=== PATIENT | male | born 1940 | race Caucasian/White ===

== ENCOUNTER 2017-10-24 12:20 | Observation (INO) | payer MEDICARE, BC ==
[2017-10-24] MEDS ORDERED: DILTIAZEM 125 MG in SODIUM CHLORIDE 0.9% 100 ML IV ONE (12:46)
--- NOTE | 2017-10-24 12:46 | ED ---
General Adult HPI - General Chief complaint: Arrhythmia/Palpitations Stated complaint: Arrhythmia Time Seen by Provider: 10/24/17 12:37 Source: patient, family, RN notes reviewed Mode of arrival: wheelchair Limitations: no limitations - History of Present Illness Initial comments: Patient is a pleasant 77-year-old male presenting to the emergency Department with reported rhythm problems. Patient states he was at the eye doctor in [place] scheduled to have a procedure done for glaucoma. Patient states while there they noticed his heart skipping a beat and beating fast. Patient has no symptoms. No palpitations. No chest pain or dyspnea. No history of similar symptoms previously. - Related Data Home Medications Medication Instructions Recorded Confirmed Atropine Ophth Soln 1% 5Ml [Isopto 1 drops LEFT EYE BID 10/24/17 10/24/17 Atropine 1% 5Ml] Brinzolamide/Brimonidine Tart 1 drop LEFT EYE BID 10/24/17 10/24/17 [Simbrinza 1%-0.2% Eye Drops] HYDROcodone/APAP 5-325MG [[place] 1 tab PO Q4-6H PRN 10/24/17 10/24/17 5-325] Latanoprost [Xalatan 0.005%] 1 drop LEFT EYE HS 10/24/17 10/24/17 Timolol 0.5% Ophth Soln [Timoptic 1 drop LEFT EYE BID 10/24/17 10/24/17 0.5% Ophth Soln] acetaZOLAMIDE [Diamox] 250 mg PO Q4H 10/24/17 10/24/17 prednisoLONE ACETATE [Pred Forte 1 drop LEFT EYE QID 10/24/17 10/24/17 1%] Allergies Allergy/AdvReac Type Severity Reaction Status Date / Time No Known Allergies Allergy Verified 10/24/17 13:00 Review of Systems ROS Statement: Those systems with pertinent positive or pertinent negative responses have been documented in the HPI. ROS Other: All systems not noted in ROS Statement are negative. Constitutional: Denies: fever Eyes: Denies: eye pain ENT: Denies: ear pain Respiratory: Denies: cough Cardiovascular: Denies: chest pain, palpitations Endocrine: Denies: fatigue Gastrointestinal: Denies: abdominal pain Genitourinary: Denies: dysuria Musculoskeletal: Denies: back pain Skin: Denies: rash Neurological: Denies: weakness Past Medical History Past Medical History: Eye Disorder History of Any Multi-Drug Resistant Organisms: None Reported Past Surgical History: Tonsillectomy Past Psychological History: No Psychological Hx Reported Smoking Status: Former smoker Past Alcohol Use History: None Reported Past Drug Use History: None Reported General Exam Limitations: no limitations General appearance: alert, in no apparent distress Head exam: Present: atraumatic Eye exam: Present: conjunctival injection, other (Left pupil sluggish. Patient states he has had previous cataract surgery.) ENT exam: Present: normal oropharynx Neck exam: Present: normal inspection Respiratory exam: Present: normal lung sounds bilaterally Cardiovascular Exam: Present: regular rate, irregular rhythm GI/Abdominal exam: Present: soft. 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 10/24/17 14:14 Repeat EKG shows normal sinus rhythm 71. CT 156. QRS 68. QT 360. QTC 391. Normal axis. Septal Q waves. No acute ST change. EKG Findings - EKG Comments: EKG Findings:: A. fib with a rate of 132. QRS 72. QT 302. QTC 447. Normal axis. Septal Q waves. No acute ST change. Medical Decision Making - Medical Decision Making Patient reevaluated and resting comfortably in bed. Patient has converted to normal sinus rhythm. Case was discussed with Dr. Treviño, who will admit for hospital call with cardiology consult. - Lab Data Result diagrams: 10/24/17 12:47 10/24/17 12:47 Lab Results 10/24/17 10/24/17 10/24/17 Range/Units 12:47 12:47 12:47 WBC 6.7 (3.8-10.6) k/uL RBC 5.61 (4.30-5.90) m/uL Hgb 16.0 (13.0-17.5) gm/dL Hct 49.6 (39.0-53.0) % MCV 88.4 (80.0-100.0) fL MCH 28.5 (25.0-35.0) pg MCHC 32.3 (31.0-37.0) g/dL RDW 15.5 (11.5-15.5) % Plt Count 299 (150-450) k/uL Neutrophils % 69 % Lymphocytes % 21 % Monocytes % 6 % Eosinophils % 1 % Basophils % 1 % Neutrophils # 4.6 (1.3-7.7) k/uL Lymphocytes # 1.4 (1.0-4.8) k/uL Monocytes # 0.4 (0-1.0) k/uL Eosinophils # 0.1 (0-0.7) k/uL Basophils # 0.1 (0-0.2) k/uL PT (9.0-12.0) sec INR (<1.2) APTT (22.0-30.0) sec Sodium 142 (137-145) mmol/L Potassium 4.3 (3.5-5.1) mmol/L Chloride 112 H (98-107) mmol/L Carbon Dioxide 21 L (22-30) mmol/L Anion Gap 9 mmol/L BUN 15 (9-20) mg/dL Creatinine 0.90 (0.66-1.25) mg/dL Est GFR (MDRD) Af Amer >60 (>60 ml/min/1.73 sqM) Est GFR (MDRD) Non-Af >60 (>60 ml/min/1.73 sqM) Glucose 138 H (74-99) mg/dL Calcium 9.5 (8.4-10.2) mg/dL Magnesium 2.2 (1.6-2.3) mg/dL Total Bilirubin 0.5 (0.2-1.3) mg/dL AST 21 (17-59) U/L ALT 32 (21-72) U/L Alkaline Phosphatase 91 (38-126) U/L Total Creatine Kinase 82 (55-170) U/L CK-MB (CK-2) 1.3 (0.0-2.4) ng/mL CK-MB (CK-2) Rel Index 1.6 Troponin I <0.012 (0.000-0.034) ng/mL Total Protein 6.9 (6.3-8.2) g/dL Albumin 4.0 (3.5-5.0) g/dL TSH 2.590 (0.465-4.680) mIU/L Free T4 1.27 (0.78-2.19) ng/dL Free T3 pg/mL 3.6 (2.8-5.3) pg/ml 10/24/17 Range/Units 12:47 WBC (3.8-10.6) k/uL RBC (4.30-5.90) m/uL Hgb (13.0-17.5) gm/dL Hct (39.0-53.0) % MCV (80.0-100.0) fL MCH (25.0-35.0) pg MCHC (31.0-37.0) g/dL RDW (11.5-15.5) % Plt Count (150-450) k/uL Neutrophils % % Lymphocytes % % Monocytes % % Eosinophils % % Basophils % % Neutrophils # (1.3-7.7) k/uL Lymphocytes # (1.0-4.8) k/uL Monocytes # (0-1.0) k/uL Eosinophils # (0-0.7) k/uL Basophils # (0-0.2) k/uL PT 10.3 (9.0-12.0) sec INR 1.1 (<1.2) APTT 25.1 (22.0-30.0) sec Sodium (137-145) mmol/L Potassium (3.5-5.1) mmol/L Chloride (98-107) mmol/L Carbon Dioxide (22-30) mmol/L Anion Gap mmol/L BUN (9-20) mg/dL Creatinine (0.66-1.25) mg/dL Est GFR (MDRD) Af Amer (>60 ml/min/1.73 sqM) Est GFR (MDRD) Non-Af (>60 ml/min/1.73 sqM) Glucose (74-99) mg/dL Calcium (8.4-10.2) mg/dL Magnesium (1.6-2.3) mg/dL Total Bilirubin (0.2-1.3) mg/dL AST (17-59) U/L ALT (21-72) U/L Alkaline Phosphatase (38-126) U/L Total Creatine Kinase (55-170) U/L CK-MB (CK-2) (0.0-2.4) ng/mL CK-MB (CK-2) Rel Index Troponin I (0.000-0.034) ng/mL Total Protein (6.3-8.2) g/dL Albumin (3.5-5.0) g/dL TSH (0.465-4.680) mIU/L Free T4 (0.78-2.19) ng/dL Free T3 pg/mL (2.8-5.3) pg/ml - Radiology Data Radiology results: image reviewed (Chest x-ray shows no acute process.) Disposition Clinical Impression: Atrial fibrillation Disposition: ADMITTED IP TO THIS HOSP Referrals: None,Stated [Primary Care Provider] - 1-2 days
[2017-10-24 13:04] LABS: Basophils # (A) 0.1 k/uL (0-0.2); Basophils % (A) 1 %; Eosinophils # (A) 0.1 k/uL (0-0.7); Eosinophils % (A) 1 %; HCT 49.6 % (39.0-53.0); Lymphocytes # (A) 1.4 k/uL (1.0-4.8); Lymphocytes % (A) 21 %; MCH 28.5 pg (25.0-35.0); MCHC 32.3 g/dL (31.0-37.0); MCV 88.4 fL (80.0-100.0); Mean Platelet Volume 7.4; Monocytes # (A) 0.4 k/uL (0-1.0); Monocytes % (A) 6 %; Neutrophils # (A) 4.6 k/uL (1.3-7.7); Neutrophils % (A) 69 %; Platelet Count 299 k/uL (150-450); RBC 5.61 m/uL (4.30-5.90); RDW 15.5 % (11.5-15.5); WBC 6.7 k/uL (3.8-10.6)
--- NOTE | 2017-10-24 13:17 | XR ---
EXAMINATION TYPE: XR chest 1V portable DATE OF EXAM: 10/24/2017 COMPARISON: NONE HISTORY: Dysrhythmia TECHNIQUE: Single frontal view of the chest is obtained. FINDINGS: Patient is rotated. Prominent lung volumes may be indicative of underlying COPD. There is no evident airspace disease, pneumothorax, or pleural effusion. Heart is small. Pulmonary vascularity and brody within normal limits. Interstitium mildly prominent. There are overlying cardiac leads. IMPRESSION: No acute cardiopulmonary disease. Rotated exam. Follow-up as indicated. Possible underly ing interstitial lung disease.
[2017-10-24 13:18] LABS: INR 1.1 (<1.2); Partial Thromboplastin Time 25.1 sec (22.0-30.0); Prothrombin Time 10.3 sec (9.0-12.0)
[2017-10-24 13:25] LABS: ALT 32 U/L (21-72); AST 21 U/L (17-59); Alkaline Phosphatase 91 U/L (38-126); Anion Gap 9 mmol/L; Blood Urea Nitrogen 15 mg/dL (9-20); Calcium 9.5 mg/dL (8.4-10.2); Carbon Dioxide 21 mmol/L (22-30); Chloride 112 mmol/L (98-107); Glucose 138 mg/dL (74-99); Magnesium 2.2 mg/dL (1.6-2.3); Sodium 142 mmol/L (137-145); Total Bilirubin 0.5 mg/dL (0.2-1.3); Total Protein 6.9 g/dL (6.3-8.2)
[2017-10-24 13:32] LABS: Creatine Kinase 82 U/L (55-170)
[2017-10-24 13:42] LABS: T4, Free (Free Thyroxine) 1.27 ng/dL (0.78-2.19)
[2017-10-24 13:45] LABS: Creatine Kinase MB 1.3 ng/mL (0.0-2.4); Troponin I <0.012 ng/mL (0.000-0.034)
[2017-10-24 13:58] LABS: Potassium 4.3 mmol/L (3.5-5.1)
[2017-10-24] MEDS ORDERED: NALOXONE 0.4 MG/ML 1 ML VIAL IV PRN (16:22)
[2017-10-24] MEDS ORDERED: SODIUM CHLORIDE 0.9% 1,000 ML IV SCH (16:30)
[2017-10-24] MEDS ORDERED: ALPRAZolam 0.25 MG TAB PO PRN (22:20)
[2017-10-24] MEDS ORDERED: TEMAZEPAM 15 MG CAP PO PRN (22:20)
[2017-10-24] MEDS ORDERED: HYDROcodone/APAP 5-325MG 1 EACH TAB PO PRN (22:20)
[2017-10-24] MEDS ORDERED: LATANOPROST 0.005% OPHTH DROPS 2.5 ML BTL LEFT EYE SCH (22:30)
--- NOTE | 2017-10-24 23:14 | HP ---
HISTORY AND PHYSICAL DATE OF SERVICE: 10/24/2017 CHIEF COMPLAINT: Palpitations. HISTORY OF PRESENT ILLNESS: This 77-year-old gentleman with a past medical history of eye disorder, glaucoma, left eye, cataracts, being followed by no primary physician in the outpatient setting, apparently was planning to have surgery for glaucoma in [facility]. The patient was noted to have atrial fibrillation with fast ventricular rate by the anesthesiologist. The patient was directed to the emergency room. The patient was found to have atrial fibrillation with a fast ventricular rate, but apparently the rhythm converted to normal sinus rhythm without any Cardizem. Patient is being closely monitored. There is no history of any chest pain. No history of palpitations. No history of headache, loss of consciousness, seizures. PAST MEDICAL HISTORY: 1. History of cataract. 2. Left eye glaucoma. 3. History of eye disorder. HOME MEDICATIONS: 1. Pred Forte 1% left eye q.i.d. 2. Diamox 250 mg q.4. 3. Timoptic 0.5 mg 1 drop left eye b.i.d. 4. Xalatan 0.05 one drop left eye at bedtime. 5. [place] 5 mg q.4 to 6 p.r.n. 6. Simbrinza 1 drop left eye b.i.d. 7. Isopto Atropine 1 drop left eye b.i.d. ALLERGIES: NONE. FAMILY HISTORY: History of stomach cancer. SOCIAL HISTORY: History of smoking. No history alcohol intake. REVIEW OF SYSTEMS: ENT: As mentioned earlier. CARDIOVASCULAR SYSTEM: As mentioned earlier. RESPIRATORY SYSTEM: No cough, hemoptysis. GI: No nausea, vomiting. : No dysuria or retention. NERVOUS SYSTEM: No numbness, weakness. ALLERGY/IMMUNOLOGY: No asthma, hayfever. MUSCULOSKELETAL: As mentioned earlier. HEMATOLOGY/ONCOLOGY: No history of anemia. ENDOCRINE: No history of diabetes, hypothyroidism. CONSTITUTIONAL: As mentioned earlier. DERMATOLOGY: Negative. RHEUMATOLOGY: Negative. PSYCHIATRY: As mentioned earlier. PHYSICAL EXAMINATION: Alert and oriented x3. Pulse is 56, blood pressure 147/87, respiration 16, temperature 97 degrees, pulse ox 96% on 2 L. HEENT: Conjunctivae normal. Oral mucosa moist. NECK: No jugular venous distention. No carotid bruit. No lymph node enlargement. CARDIOVASCULAR SYSTEM: S1, S2 irregular. No murmur. No thrills. RESPIRATORY SYSTEM: Breath sounds diminished at the bases. No rhonchi. No crackles. ABDOMEN: Soft, non-tender. No mass palpable. No hepatosplenomegaly. LEGS: No edema. No swelling. NERVOUS SYSTEM: Higher functions as mentioned earlier. Moves all 4 limbs. No focal motor or sensory deficit. LYMPHATICS: No lymph node palpable in neck, axillae or groin. SKIN: No ulcer, rash, bleeding. LABS: Labs at this time show CBC within normal limits. Otherwise glucose 138. TSH is normal. Free T3 and free T4 were also normal. ASSESSMENT: 1. Paroxysmal atrial fibrillation. 2. Glaucoma. 3. Increased random blood sugar. 4. History of cataracts. 5. History of nicotine dependence. RECOMMENDATION AND DISCUSSION: In this 77-year-old gentleman who presented with multiple complex medical issues, we will we will monitor the patient closely, continue the current medications, continue with symptomatic treatment. Will obtain 2D echo with Doppler. Cardiology consultation. Otherwise monitor rate closely. Cardizem has not been initiated. Guarded prognosis because of the multiple complex medical issues. Discussed with the patient, who understands. Further recommendations to follow. MMODL / IJN: [id number] /
[2017-10-24] MEDS: DORZOLAMIDE HCL 2% DROPS 10 ML BTL LEFT EYE SCH (23:21)
[2017-10-24] MEDS: NICOTINE 14MG/24HR PATCH TRANSDERM SCH (23:21)
[2017-10-24] MEDS: TIMOLOL 0.5% OPHTH DROPS 5 ML BTL LEFT EYE SCH (23:21)
[2017-10-24] MEDS: prednisoLONE ACETATE 1% OPHTH DROPS 5 ML BTL LEFT EYE SCH (23:21)
[2017-10-24] MEDS: ATROPINE OPHTH SOLN 1% 5ML BTL LEFT EYE SCH (23:21)
[2017-10-24] MEDS: acetaZOLAMIDE 250 MG TAB PO SCH (23:21)
[2017-10-25] MEDS: acetaZOLAMIDE 250 MG TAB PO SCH ×3 (03:38→12:51)
[2017-10-25 06:25] LABS: Basophils # (A) 0.1 k/uL (0-0.2); Basophils % (A) 2 %; Eosinophils # (A) 0.1 k/uL (0-0.7); Eosinophils % (A) 2 %; HCT 43.5 % (39.0-53.0); Lymphocytes # (A) 1.3 k/uL (1.0-4.8); Lymphocytes % (A) 26 %; MCH 29.3 pg (25.0-35.0); MCHC 32.3 g/dL (31.0-37.0); MCV 90.7 fL (80.0-100.0); Monocytes # (A) 0.5 k/uL (0-1.0); Monocytes % (A) 10 %; Neutrophils # (A) 2.9 k/uL (1.3-7.7); Neutrophils % (A) 57 %; Platelet Count 249 k/uL (150-450); RBC 4.79 m/uL (4.30-5.90); RDW 14.3 % (11.5-15.5); WBC 5.1 k/uL (3.8-10.6)
[2017-10-25 06:32] LABS: Anion Gap 8 mmol/L; Blood Urea Nitrogen 17 mg/dL (9-20); Calcium 8.8 mg/dL (8.4-10.2); Carbon Dioxide 24 mmol/L (22-30); Chloride 109 mmol/L (98-107); Glucose 88 mg/dL (74-99); Sodium 141 mmol/L (137-145)
[2017-10-25] MEDS ORDERED: PANTOPRAZOLE 40 MG TABLET PO SCH (07:30)
[2017-10-25 08:43] VITALS: RESP 18
[2017-10-25] MEDS ORDERED: BRIMONIDINE TARTRATE 0.2% DROPS 5 ML BTL LEFT EYE SCH (09:00)
[2017-10-25] MEDS ORDERED: HEPARIN SODIUM,PORCINE 5,000 UNIT/ML 1 ML VIAL SQ SCH (09:00)
[2017-10-25] MEDS: ATROPINE OPHTH SOLN 1% 5ML BTL LEFT EYE SCH (09:20)
[2017-10-25] MEDS: TIMOLOL 0.5% OPHTH DROPS 5 ML BTL LEFT EYE SCH (09:21)
[2017-10-25] MEDS: DORZOLAMIDE HCL 2% DROPS 10 ML BTL LEFT EYE SCH (09:21)
[2017-10-25] MEDS: NICOTINE 14MG/24HR PATCH TRANSDERM SCH (09:21)
[2017-10-25] MEDS: prednisoLONE ACETATE 1% OPHTH DROPS 5 ML BTL LEFT EYE SCH ×2 (09:21→14:23)
--- NOTE | 2017-10-25 11:21 | ECHOF ---
Referral Reason:afib MEASUREMENTS -------- HEIGHT: 175.3 cm WEIGHT: 70.3 kg BP: 147/87 RVIDd: 3.2 cm (< 3.3) IVSd: 0.8 cm (0.6 - 1.1) LVIDd: 3.8 cm (3.9 - 5.3) LVPWd: 1.0 cm (0.6 - 1.1) IVSs: 1.4 cm LVIDs: 2.2 cm LVPWs: 1.4 cm LA Diam: 2.8 cm (2.7 - 3.8) Ao Diam: 3.6 cm (2.0 - 3.7) AV Cusp: 2.0 cm (1.5 - 2.6) MV EXCURSION: 19.848 mm (> 18.000) MV EF SLOPE: 81 mm/s (70 - 150) EPSS: 0.3 cm MV E Wilman: 0.91 m/s MV DecT: 285 ms MV A Wilman: 0.67 m/s MV E/A Ratio: 1.36 RAP: 5.00 mmHg RVSP: 25.25 mmHg FINDINGS -------- Resting bradycardia (HR<60bpm). This was a technically good study. The left ventricular size is normal. Left ventricular wall thickness is normal. Overall left vent ricular systolic function is normal with, an EF between 55 - 60 %. The right ventricle is normal in size and function. The left atrium is normal in size. The right atrium is normal in size. There is mild aortic valve sclerosis. Mild mitral annular calcification present. Mild tricuspid regurgitation present. Right ventricular systolic pressure is normal at < 35 mmHg. There is no pulmonic regurgitation present. The aortic root size is normal. Normal inferior vena cava with normal inspiratory collapse consistent with estimated right atrial pre ssure of 5 mmHg. There is no pericardial effusion. CONCLUSIONS -------- 1. Resting bradycardia (HR<60bpm). 2. This was a technically good study. 3. The left ventricular size is normal. 4. Left ventricular wall thickness is normal. 5. Overall left ventricular systolic function is normal with, an EF between 55 - 60 %. 6. The right ventricle is normal in size and function. 7. The left atrium is normal in size. 8. The right atrium is normal in size. 9. There is mild aortic valve sclerosis. 10. Mild mitral annular calcification present. 11. Mild tricuspid regurgitation present. 12. Right ventricular systolic pressure is normal at < 35 mmHg. 13. There is no pulmonic regurgitation present. 14. The aortic root size is normal. 15. Normal inferior vena cava with normal inspiratory collapse consistent with estimated right atrial pressure of 5 mmHg. 16. There is no pericardial effusion. DATA GOVERNANCE CONSULTANT: Swathi Munson RDCS
[2017-10-25 11:38] VITALS: BMI 19.2
[2017-10-25 11:48] VITALS: BP 126/73; PULSE 55; TEMP 96.9
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
--- NOTE | 2017-10-26 11:31 | DS ---
DISCHARGE SUMMARY FINAL DIAGNOSES: 1. Paroxysmal atrial fibrillation. 2. Glaucoma. 3. Increase random blood sugar. 4. History of cataracts. 5. History of nicotine dependence. DISCHARGE DISPOSITION: The patient will be discharged in stable condition with guarded prognosis. HISTORY OF PRESENT ILLNESS: This 77-year-old gentleman with a past medical history of multiple medical problems was admitted with paroxysmal atrial fibrillation, referred from the surgeon's place where the patient is slated to have surgery for glaucoma. The patient was monitored closely. Eliquis was initiated by Cardiology. Patient improved significantly. On exam, vitals are stable. CARDIOVASCULAR: S1, S2 normal, regular. ABDOMEN: Soft, nontender. NERVOUS SYSTEM: No focal deficits. The patient will be discharged in stable condition with guarded prognosis with the following advice and medications: Diet is cardiac diet. Activity limited until followup. Follow up with Dr. Mays in 2-3 days for continued followup. Medications are: 1. Diamox 250 mg q.4h. 2. Eliquis 2.5 mg p.o. daily. 3. Isopto Atropine ophthalmic drops 1 drop left eye. 4. Brinzolamide and brimonidine 1 drop left eye. 5. [place] 1 tablet q.4h p.r.n. 6. Xalatan 0.05% 1 drop left eye. 7. Pred Forte 1 drop left eye. 8. Timoptic 0.5% 1 drop left eye. Follow up with Cardiology and as well as the patient's own surgical territory manager as advised. MMODL / IJN: [id number] /
== END 2017-10-25 16:13 | disposition home or self-care (01) ==
LOC: EC 12:20 → 6SEL 16:22
PROVIDERS: ADMIT Internal Medicine; ATTEND Internal Medicine
DX: I48.0 Paroxysmal atrial fibrillation (principal); H40.9 Unspecified glaucoma; Z79.899 Other long term (current) drug therapy; Z79.52 Long term (current) use of systemic steroids; F17.200 Nicotine dependence, unspecified, uncomplicated; H26.9 Unspecified cataract
CPT/HCPCS: 99285; 36415; 93005; 93306; 84439; 84481; 80053; 80048; 82550; 82553; 83735; 84443; 84484 ×2; 85025 ×2; 85610; 85730; 83036; 71010; G0378 ×2